=== PATIENT | male | born 2005 | race Caucasian/White ===

== ENCOUNTER 2023-06-19 07:55 | Emergency (ER) | payer MEDICAID, OTHER ==
[~2023-06-19] VITALS: Ht 175.3 cm; Wt 63.6 kg
[2023-06-19 08:00] VITALS: O2SAT 100
[2023-06-19 08:49] LABS: BASOPHILS % 0.2 % (0.0-2.0); EOSINOPHILS % 0.6 % (0.0-5.0); HEMATOCRIT. 42.5 % (42.0-52.0); HEMOGLOBIN. 14.4 g/dL (14.0-18.0); LYMPHOCYTES % 12.6 % (20.0-50.0); MEAN CORPUSCULAR HEMOGLOBIN 31.1 pg (28.0-32.0); MEAN CORPUSCULAR HGB CONC 33.9 g/dL (31.0-37.0); MEAN CORPUSCULAR VOLUME 91.6 fL (80.0-94.0); MEAN PLATELET VOLUME 9.1 fl (7.4-10.4); MONOCYTES % 5.6 % (2.0-8.0); PLATELET 144 x1000/uL (130-400); RED BLOOD CELL COUNT 4.64 mill/uL (4.7-6.1); RED CELL DISTRIBUTION WIDTH 13.1 % (11.6-14.6)
[2023-06-19 09:18] LABS: ALANINE AMINOTRANSFERASE 14 IU/L (10-49); ALBUMIN 4.9 g/dL (3.2-4.8); ASPARTATE AMINOTRANSFERASE 19 IU/L (<34); BILIRUBIN TOTAL 0.6 mg/dL (0.1-1.0); CALCIUM 9.5 mg/dL (8.7-10.4); CARBON DIOXIDE 25 mEq/L (21-32); CHLORIDE 108 mEq/L (98-107); CREATININE 0.8 mg/dL (0.6-1.3); GLUCOSE 118 mg/dL (70-105); POTASSIUM 3.9 mEq/L (3.5-5.1); PROTEIN TOTAL 7.8 g/dL (6.0-8.3); SODIUM 139 mEq/L (136-145); UREA NITROGEN BLOOD 14 mg/dL (9-23)
[2023-06-19] MEDS: MORPHINE SULFATE 4 MG/ML INJ (FOR IV/IM USE) IV ONE (09:21)
[2023-06-19] MEDS: ONDANSETRON HCL 4MG/2ML INJ IV ONE (09:22)
[2023-06-19 10:54] VITALS: TEMP 98.7
[2023-06-19 11:03] VITALS: BP 126/64; PULSE 66; RESP 13
[2023-06-19] MEDS: MORPHINE SULFATE 2 MG/ML CPJ (NOT FOR IM USE) IV NR (11:03)
[2023-06-19] MEDS ORDERED: ROCURONIUM BROMIDE 10MG/ML VIAL 5ML IV ONE (11:44)
[2023-06-19] MEDS ORDERED: METOCLOPRAMIDE HCL 10MG/2ML VIAL ONE (11:44)
[2023-06-19] MEDS ORDERED: SUCCINYLCHOLINE CHLORIDE 200MG/10ML IV ONE (11:44)
[2023-06-19] MEDS ORDERED: PROPOFOL 200MG/20ML VIAL IV ONE (11:44)
[2023-06-19] MEDS ORDERED: CEFAZOLIN SODIUM 1000MG/VIAL ONE (11:44)
[2023-06-19] MEDS ORDERED: LIDOCAINE HCL 1% 10 MG/ML 10ML VIAL ONE (11:44)
[2023-06-19] MEDS ORDERED: DEXAMETHASONE 4MG/ML 1ML VIAL ONE (11:44)
[2023-06-19] MEDS ORDERED: ONDANSETRON HCL 4MG/2ML INJ ONE (11:44)
[2023-06-19] MEDS ORDERED: FENTANYL CITRATE/PF 50MCG/ML 2ML VIAL ONE (11:44)
[2023-06-19] MEDS ORDERED: MIDAZOLAM HCL 2 MG/2 ML VIAL ONE (11:44)
[2023-06-19] MEDS ORDERED: BUPIVACAINE HCL/PF 0.25% (2.5MG/ML) 10ML ONE (11:48)
[2023-06-19] MEDS ORDERED: BACITRACIN 14GM TUBE TOP ONE ×2 (11:48→11:49)
[2023-06-19] MEDS ORDERED: FAMOTIDINE 20MG/2ML VIAL IV ONE (11:55)
[2023-06-19] MEDS ORDERED: CITRIC ACID/SODIUM CITRATE SOLN 30ML UDC PO NR (12:15)
[2023-06-19] MEDS ORDERED: NEOSTIGMINE METHYLSULFATE 1MG/ML 10 ML VIAL ONE (13:40)
[2023-06-19] MEDS ORDERED: GLYCOPYRROLATE 0.2 MG/ML 2ML VIAL ONE ×2 (13:40→14:04)
[2023-06-19] MEDS ORDERED: EPHEDRINE SULFATE 50MG/ML VIAL ONE (14:06)
[2023-06-19] MEDS ORDERED: FENTANYL CITRATE/PF 50MCG/ML 2ML VIAL IV PRN (14:30)
[2023-06-19] MEDS ORDERED: HYDROMORPHONE HCL/PF 2MG/ML CPJ IV PRN (14:30)
== END 2023-06-19 14:00 | disposition admitted as inpatient to this hospital (09) ==
LOC: ER 07:55
DX: N50.812 Left testicular pain (principal)
CPT/HCPCS: 80053; 83690; 85025; 36415; 93976; 76870; 96374; 96375; 96376; 99291; J3010; J3490 ×6; J0690; J1100; J2765; J2250; J2710; J2405; J2704; J0330; J2270 ×2; A4217; Z7610 ×16; J7030

== ENCOUNTER 2023-06-20 11:45 | Emergency (ER) | payer OTHER ==
[~2023-06-20] VITALS: Ht 182.9 cm; Wt 68.0 kg
[2023-06-20 11:51] VITALS: O2SAT 97
[2023-06-20 13:56] VITALS: BP 104/66; PULSE 72; RESP 18; TEMP 98.1
== END 2023-06-20 14:00 | disposition home or self-care (01) ==
LOC: ER 11:45
DX: N99.820 Postprocedural hemorrhage of a genitourinary system organ or structure following a genitourinary system procedure (principal); Z88.6 Allergy status to analgesic agent
CPT/HCPCS: 99281; Z7610